=== PATIENT | female | born 2000 | race Hispanic/Latino ===

== ENCOUNTER 2020-12-14 01:16 | Emergency (ER) | payer OTHER ==
[~2020-12-14] VITALS: Ht 149.9 cm; Wt 49.9 kg
[2020-12-14 01:59] VITALS: BP 129/96
[2020-12-14 03:36] LABS: APPEARANCE,URINE Cloudy (CLEAR); BILIRUBIN,URINE Negative (NEGATIVE); COLOR,URINE Yellow (YELLOW); GLUCOSE, URINE (UA) Negative (NEGATIVE); KETONES,URINE >=80 mg/dL (NEGATIVE); LEUKOCYTE ESTERASE ,URINE Large (NEGATIVE); NITRATE,URINE Negative (NEGATIVE); OCCULT BLOOD,URINE Moderate (NEGATIVE); PROTEIN,URINE POS 1+ mg/dL (NEGATIVE)
[2020-12-14 03:43] LABS: HCG,QUAL RESULT NEGATIVE (NEGATIVE)
[2020-12-14] MEDS ORDERED: ACYC200C24 PO (03:50)
[2020-12-14] MEDS ORDERED: [UNRECOGNIZED DRUG - CODE] MM (03:50)
[2020-12-14] MEDS ORDERED: IBUPROFEN 600 MG TABLET PO ONE (04:00)
[2020-12-14] MEDS ORDERED: ACETAMINOPHEN 500 MG TABLET PO ONE (04:00)
[2020-12-14] MEDS ORDERED: ACYCLOVIR 200 MG CAPSULE PO SCH (04:00)
[2020-12-14] MEDS ORDERED: LIDOCAINE HCL 2% JELLY 5 ML TP SCH (04:00)
[2020-12-14 04:03] VITALS: BP 122/89
[2020-12-14 04:31] LABS: BACTERIA,URINE Moderate /HPF (None Seen); WBC,URINE 51-100 /HPF (0-1)
[2020-12-14 04:32] LABS: SQUAMOUS EPITHELIAL CELL,UR Moderate /HPF (0-2)
[2020-12-16 15:14] LABS: CHLAMYDIA DNA N.A.AMPLIFY Negative (Negative)
== END 2020-12-14 04:16 | disposition home or self-care (01) ==
LOC: EDH 01:16
DX: A60.09 Herpesviral infection of other urogenital tract (principal); Z79.1 Long term (current) use of non-steroidal anti-inflammatories (NSAID)
CPT/HCPCS: 81001; 81025; 87077; 87088; 87186; 87486; 87797